=== PATIENT | female | born 2000 | race Caucasian/White ===

== ENCOUNTER 2020-12-14 05:49 | Inpatient (IN) ==
[2020-12-14] MEDS ORDERED: OXYTOCIN/0.9 % SODIUM CHLORIDE 30 UNITS/500 ML BAG IV ONE ×2 (06:17→18:57)
[2020-12-14] MEDS ORDERED: ONDANSETRON 4 MG TAB.RAPDIS PO PRN (06:17)
[2020-12-14] MEDS ORDERED: RINGER'S SOLUTION,LACTATED 1,000 ML IV ONE (06:17)
[2020-12-14] MEDS: DEXTROSE 5%-LACTATED RINGERS 1,000 ML IV PRN ×2 (10:28→14:07)
--- NOTE | 2020-12-14 14:08 | ANES ---
Anesthesia Pre Procedure Eval Vitals/Labs: Last Vital Signs Temp 36.9 C 12/14/20 06:30 Pulse 97 12/14/20 06:30 Resp 20 12/14/20 06:30 BP 121/65 12/14/20 06:30 Pulse Ox 97 12/14/20 06:30 HOME MEDICATIONS calcium carbonate 200 mg calcium (500 mg) chewable tablet 200 mg PO DAILY PRN 05/10/20 [Last Taken Unknown] acetaminophen 325 mg capsule 650 mg PO Q6H PRN 07/19/20 [Last Taken Unknown] cetirizine 10 mg capsule 10 mg PO DAILY PRN 10/04/20 [Last Taken Unknown] diphenhydramine HCl 25 mg capsule 25 mg PO HS 10/04/20 [Last Taken Unknown] ferrous sulfate 325 mg (65 mg iron) tablet,delayed release 325 mg PO DAILY #30 tab 10/05/20 [Last Taken Unknown] Vits96/Iron Fum/Folic [ S] 1 tab PO DAILY 12/14/20 [Last Taken Unknown] Allergies/Adverse Reactions: Allergies Allergy/AdvReac Type Severity Reaction Status Date / Time cat dander Allergy Itching Verified 12/14/20 06:18 cephalexin Allergy rash, hives Verified 12/14/20 06:18 - Planned Procedure Planned Procedure: elective induction 39 weeks Medication List Reviewed:: Yes Allergies Verified: Yes Medical History (Last Reviewed 12/14/20 @ 14:07 by Mg Levin CRNA) Anemia (Acute) Onset Date: 09/2020 w/ COVID-19 (Resolved) Onset Date: 05/2020 Tobacco abuse (Resolved) Bacterial vaginitis (Acute) Ovarian cyst (Acute) Simple 2.91 cm Anxiety Depression tx'd prozac stopped with +UPT Deviated septum Lymphadenitis Otitis media Pharyngitis Tonsillar hypertrophy Viral tonsillitis Surgical History (Last Reviewed 12/14/20 @ 14:07 by Mg Levin CRNA) Hx of tonsillectomy age 15 Family History (Last Reviewed 12/14/20 @ 14:07 by Mg Levin CRNA) Mother Diabetes type 2 Grandfather Diabetes Heart disease Father Sleep apnea - Family Anesthesia History Family History:: no untoward family reactions to anesthesia, no familial bleeding tendencies, no family history of clotting disorders, no family history of premature - Airway/Neck/Teeth Within Normal Limits:: Yes Teeth Condition: intact Neck Exam: full range of motion Mallampatti Score: 2 Thyromental (T-M) distance: > 6 cm Mandibulo Hyoid distance: > 3 cm - Respiratory Respiratory Physical: lungs clear Sleep Apnea currently treated: No Sleep Apnea by current assessment: No - Cardiovascular Tolerate Activity: Fair Heart Sounds: S1 & S2, Regular - Gastrointestinal NPO since: am - Anesthesia Assessment and Plan ASA Class: PS, II, E Anesthesia Type Plan: Epidural - CSE for labor analgesia
[2020-12-14] MEDS ORDERED: NALOXONE HCL 1 MG/1 ML SYRG IV PRN (14:13)
[2020-12-14] MEDS ORDERED: BUPIVACAINE HCL/0.9 % NACL/PF 250 ML EP PRN (14:13)
[2020-12-14] MEDS ORDERED: ONDANSETRON HCL/PF 2 MG/ML VIAL IV PRN (14:13)
[2020-12-14] MEDS ORDERED: fentaNYL CITRATE/PF 50 MCG/ML AMPUL IT SCH (14:15)
--- NOTE | 2020-12-14 14:33 | ANES ---
Post Anesthesia Discharge - Transfer of Care Transfer of Care handoff given to nurse: Yes - Discharge from PACU Discharge from PACU when meets criteria: Yes - Comfortable post CSE
--- NOTE | 2020-12-14 14:35 | ANES ---
Anesthesia Procedure Note Procedure Note: ANESTHESIA PROCEDURE NOTE Date of Procedure: 12/14/2020 Time of procedure: 1415. Performed by: JEROD [place] CRNA, MSN Technical Operations Vice President: Sarah Zimmerman RN. Preprocedure diagnosis: Active labor, labor pain. Post procedure diagnosis: Same. Procedure:Epidural for labor analgesia L3-4. Indications: Labor pain. Findings: See below. Details of the procedure: The patient was placed on the side of the bed in sitting position and prepped with DuraPrep then draped in a sterile fashion. Lidocaine 1% was infiltrated to the skin and subcutaneous tissues at the level of the L3-4 interspace. An 18-gauge Touhy needle was used to approach the epidural space with loss of resistance technique. Once loss of resistance was achieved a 27-gauge spinal needle was passed through the epidural needle and CSF was contacted. After CSF returned, 20 mcg of fentanyl was injected in the spinal needle was removed the epidural catheter was then threaded approximately 4 cm in the epidural needle was removed. The catheter was taped in place and after careful aspiration 3 mL of 1.5% lidocaine with 1-200,000 epinephrine was injected without change in maternal heart rate or sensorium. . EBL: Minimal. Fluids: N/A. Specimen: N/A. Post procedure condition: The patient tolerated the procedure well with good relief. No complications were noted. Thank you for this consultation. Mg Levin CRNA, ARNP, MSN
--- NOTE | 2020-12-14 14:53 | ANES ---
Post Anesthesia Assessment - Vital Signs Vitals: Last Vital Signs Temp 36.9 C 12/14/20 06:30 Pulse 97 12/14/20 06:30 Resp 20 12/14/20 06:30 BP 121/65 12/14/20 06:30 Pulse Ox 97 12/14/20 06:30 Airway Patency: Normal - Mental Status Level Of Consciousness: Awake, Alert, Appropriate - Pain Level Pain Score: 0 - N/V Assessment Nausea/Vomiting Presence: None Dehydration:: No
--- NOTE | 2020-12-14 17:03 | HP ---
Chief Complaint - Chief Complaint Date of Service: 12/14/20 Time of Service: 07:25 Chief Complaint: elective induction of labor History of Present Illness: 20 yo at 39w4d admitted for elective induction of labor. This complicated by anemia, UTI, COVID-19 (05/30/21), and smoker. Rh positive Rubella immune GBS negative Medical History (Last Reviewed 12/14/20 @ 16:56 by Roberto Castaneda DO) Anemia (Acute) Onset Date: 09/2020 w/ COVID-19 (Resolved) Onset Date: 05/2020 Tobacco abuse (Resolved) Bacterial vaginitis (Acute) Ovarian cyst (Acute) Simple 2.91 cm Anxiety Depression tx'd prozac stopped with +UPT Deviated septum Lymphadenitis Otitis media Pharyngitis Tonsillar hypertrophy Viral tonsillitis Surgical History: Surgical History (Last Reviewed 12/14/20 @ 16:56 by Roberto Castaneda DO) Hx of tonsillectomy age 15 Family History: Family History (Last Reviewed 12/14/20 @ 16:56 by Roberto Castaneda DO) Mother Diabetes type 2 Grandfather Diabetes Heart disease Father Sleep apnea Social History: (Last Reviewed 12/14/20 @ 16:56 by Roberto Castaneda DO) Social History: Marital status: Single household members: significant other current occupational status: employed Highest level of school completed/degree received: high school graduate Service: No Tobacco: Smoking Status: Current every day smoker tobacco type: cigarettes Smoking cigarettes per day: 3 Alcohol: alcohol intake: current alcohol intake frequency: a few times a week details: none with Substance Use: substance use type: does not use Dietary Habits: caffeine: Yes caffeine comment: 2/day Type: tea Exercise: Physical activity type: none Review Of Systems (GEN) - Review of Systems Generalized/Overall Review: Present: No Symptoms Reported EENTM: Present: No Symptoms Reported Respiratory: Present: No Symptoms Reported Cardiac: Present: No Symptoms Reported Abdominal: Present: Other - mild contractions Genitourinary: Present: Frequency Musculoskeletal: Present: No Symptoms Reported Neurological: Present: No Symptoms Reported Skin: Present: No Symptoms Reported Endocrine: Present: No Symptoms Reported Immunizations: IMMUNIZATION HX Immunizations Up to Date Yes History of Influenza Vaccine Yes Hx Pneumococcal Vaccination No Allergies/Adverse Reactions: Allergies Allergy/AdvReac Type Severity Reaction Status Date / Time cat dander Allergy Itching Verified 12/14/20 06:18 cephalexin Allergy rash, hives Verified 12/14/20 06:18 Home Medications: HOME MEDICATIONS calcium carbonate 200 mg calcium (500 mg) chewable tablet 200 mg PO DAILY PRN 05/10/20 [Last Taken Unknown] acetaminophen 325 mg capsule 650 mg PO Q6H PRN 07/19/20 [Last Taken Unknown] cetirizine 10 mg capsule 10 mg PO DAILY PRN 10/04/20 [Last Taken Unknown] diphenhydramine HCl 25 mg capsule 25 mg PO HS 10/04/20 [Last Taken Unknown] ferrous sulfate 325 mg (65 mg iron) tablet,delayed release 325 mg PO DAILY #30 tab 10/05/20 [Last Taken Unknown] Vits96/Iron Fum/Folic [ S] 1 tab PO DAILY 12/14/20 [Last Taken Unknown] Exam - Exam Vital Signs: Vital Signs - Last Taken Temp 36.9 C 12/14/20 06:30 Pulse 97 12/14/20 06:30 Resp 20 12/14/20 06:30 BP 121/65 12/14/20 06:30 Pulse Ox 97 12/14/20 06:30 Constitutional: Present: Alert, Oriented x3, Cooperative, No distress ENT Exam: Present: hearing grossly normal Neck: Present: non-tender Breasts: Present: Exam deferred Respiratory: Present: lungs clear, no respiratory distress Cardiovascular/Chest: Present: normal peripheral pulses, regular rate, rhythm Abdomen: Present: soft, nontender, no rebound tenderness, other - gravid /Rectal: Present: Other - cervix 2/75/-2 Extremity: Present: no calf tenderness, lower extremity edema - 1+ Skin Exam: Present: normal color, warm/dry, no cyanosis Lymphatic: Present: no adenopathy Neurologic: Present: alert, normal mood/affect, oriented x 3 Appearance: Present: appropriate appearance, appropriate insight Eye contact: Present: cooperative, good eye contact Assessment/Plan - Assessment/Plan (1) Encounter for elective induction of labor Assessment: Admit for pitocin induction of labor. Epidural PRN. Problem: Acute (2) Anemia Problem: Acute Qualifiers: Anemia type: iron deficiency Iron deficiency anemia type: inadequate dietary iron intake Qualified Code(s): D50.8 - Other iron deficiency anemias (3) Tobacco abuse Problem: Resolved
--- NOTE | 2020-12-14 18:10 | PN ---
Progess Note - Interim Date: 12/14/20 Time: 13:00 Narrative: 12/14/20 18:52 Patient rating contractions as mild to moderate Vital signs stable. Pitocin at 6 mu/min. FHT: 150 baseline, reassuring contractions q 2-3 min Cervix: 2/80/-2, AROM-clear Impression: Intrauterine at 39 weeks 4 days with elective induction of labor. Plan: Prepare for epidural placement.
--- NOTE | 2020-12-14 18:54 | OR ---
Operative Report - Dictated Report Narrative: Spontaneous vaginal delivery of viable female at 1821 on 12/14/2020 with Apgars 9 and 9, weighing 3022 g in KELBY position with nuchal cord x1 and true knot in cord. Cord clamping delayed approximately 90 seconds Placenta delivered complete, intact, with three vessel cord Estimated blood loss: 200 mL Anesthesia: Epidural Lacerations: 2 cm second-degree vaginal laceration repaired with 3-0 Vicryl History for MU History for Definition: * The number of deliveries resulting in a live the patient experienced prior to current hospitalization * The previous delivery of live twins or any live multiple gestation is considered one live event. *If primagravida or nulliparous is documented select zero for the number of previous live births. Live Events: Live Events: 0
[2020-12-14] MEDS ORDERED: CALCIUM CARBONATE 500 MG TAB.CHEW PO PRN (18:55)
[2020-12-14] MEDS ORDERED: oxyCODONE HCL/ACETAMINOPHEN 1 TAB TABLET PO PRN (18:57)
[2020-12-14] MEDS ORDERED: HYDROCORTISONE 30 APPL TUBE TP PRN (18:57)
[2020-12-14] MEDS ORDERED: BISACODYL 10 MG SUPP.RECT RC PRN (18:57)
[2020-12-14] MEDS ORDERED: BENZOCAINE/MENTHOL 81 SPRAY CAN TP PRN (18:57)
[2020-12-14] MEDS ORDERED: ACETAMINOPHEN 325 MG TABLET PO PRN (18:57)
[2020-12-14] MEDS ORDERED: GLYCERIN/WITCH HAZEL LEAF 40 APPL BOX TP PRN (18:57)
[2020-12-14] MEDS ORDERED: SENNOSIDES 8.6 MG TABLET PO PRN (18:57)
[2020-12-14] MEDS ORDERED: LORATADINE 10 MG TABLET PO PRN (19:16)
[2020-12-14] MEDS: IBUPROFEN 800 MG TABLET PO PRN (20:52)
[2020-12-14] MEDS: DOCUSATE SODIUM 100 MG CAPSULE PO SCH (20:52)
[2020-12-15] MEDS: HYDROcodone/ACETAMINOPHEN 1 EACH TABLET PO PRN ×5 (00:04→21:47)
[2020-12-15] MEDS: IBUPROFEN 800 MG TABLET PO PRN ×4 (04:49→23:34)
[2020-12-15] MEDS: PRENATAL VITS96/IRON FUM/FOLIC 1 TAB TABLET PO SCH (09:08)
[2020-12-15] MEDS: FERROUS SULFATE 325 MG TABLET PO SCH (09:08)
[2020-12-15] MEDS: DOCUSATE SODIUM 100 MG CAPSULE PO SCH ×2 (09:08→20:56)
--- NOTE | 2020-12-15 09:09 | PN ---
Subjective - Date and Time Seen Date: 12/15/20 Time: 08:30 Objective - Vitals Vitals: Last Vital Signs Temp 36.6 C 12/15/20 08:28 Pulse 86 12/15/20 08:28 Resp 16 12/15/20 08:28 BP 108/68 12/15/20 08:28 Pulse Ox 98 12/15/20 08:28 Patient denies complaints. Lochia wnl abdomen - soft, nontender Uterus -firm, at umbilicus - 1 No calf tenderness Impression: day #1 - s/p spontaneous vaginal delivery. Plan: Continue routine care Cauti Physician Documentation - Urinary Catheter Management Urethral (Stein) Date of Insertion: 12/14/20 Time of Insertion: 14:30 Date of Removal: 12/14/20 Time of Removal: 18:00 Assessment/Plan - Problems/Diagnosis (1) Normal vaginal delivery of first Problem: Acute (2) Encounter for elective induction of labor Problem: Acute (3) Anemia Problem: Acute Qualifiers: Anemia type: iron deficiency Iron deficiency anemia type: inadequate dietary iron intake Qualified Code(s): D50.8 - Other iron deficiency anemias (4) Tobacco abuse Problem: Resolved
[2020-12-16] MEDS: IBUPROFEN 800 MG TABLET PO PRN ×2 (05:48→12:42)
[2020-12-16] MEDS: HYDROcodone/ACETAMINOPHEN 1 EACH TABLET PO PRN ×3 (05:48→14:42)
[2020-12-16] MEDS: PRENATAL VITS96/IRON FUM/FOLIC 1 TAB TABLET PO SCH (09:43)
[2020-12-16] MEDS: DOCUSATE SODIUM 100 MG CAPSULE PO SCH (09:43)
[2020-12-16] MEDS: FERROUS SULFATE 325 MG TABLET PO SCH (09:44)
--- NOTE | 2020-12-16 12:56 | PN ---
Subjective - Date and Time Seen Date: 12/16/20 Time: 12:56 Objective - Vitals Vitals: Last Vital Signs Temp 36.7 C 12/16/20 07:30 Pulse 81 12/16/20 07:30 Resp 16 12/16/20 07:30 BP 115/69 12/16/20 07:30 Pulse Ox 99 12/16/20 07:30 Patient denies complaints. Bottlefeeding. Lochia wnl abdomen - soft, nontender Uterus -firm, at umbilicus - 2 No calf tenderness Impression: day #2 - s/p spontaneous vaginal delivery. Plan: Routine discharge instructions Cauti Physician Documentation - Urinary Catheter Management Urethral (Stein) Date of Insertion: 12/14/20 Time of Insertion: 14:30 Date of Removal: 12/14/20 Time of Removal: 18:00 Assessment/Plan - Problems/Diagnosis (1) Normal vaginal delivery of first Problem: Acute (2) Encounter for elective induction of labor Problem: Acute (3) Anemia Problem: Acute Qualifiers: Anemia type: iron deficiency Iron deficiency anemia type: inadequate dietary iron intake Qualified Code(s): D50.8 - Other iron deficiency anemias (4) Tobacco abuse Problem: Resolved
--- NOTE | 2020-12-16 13:00 | DS ---
OB Discharge Summary (1) Normal vaginal delivery of first Status: Acute (2) Encounter for elective induction of labor Status: Acute (3) Anemia Status: Acute Qualifiers: Anemia type: iron deficiency Iron deficiency anemia type: inadequate dietary iron intake Qualified Code(s): D50.8 - Other iron deficiency anemias (4) Tobacco abuse Status: Resolved Delivery Date: 12/14/20 Delivery Time: 18:21 :: 1 Para:: 1 Gestational weeks:: 39 Gestational days:: 4 Intrapartum Procedures: Spontaneous Vaginal Delivery, Delivered Procedures: Other - Repair second-degree vaginal laceration. /OP Complications: No Complications Discharge Diagnosis: Term -Delivered, Rubella Immune - Discharge Information Date of Discharge: 12/16/20 Hospital Course: 20-year-old 1 para 0 admitted at 39 4/7 weeks for elective induction of labor. Delivery and course uncomplicated. Patient was discharged with routine discharge instructions on day 2. Discharge Location: Home Disposition: Home self-care Condition: Good Activity on Discharge:: Activity as tolerated, Pelvic Rest Discharge Diet: General/regular food Additional Patient Instructions (free text): Calderon's follow up appt is Saturday12/19/20 @ 10:15AM with Dr Chiu. Please arrive at 10:00 for paperwork. Her Blood Type is A+. Her Weight Today is 6 pounds 8.2 ounces. Her Bilirubin is 7.1 at 34 hours of age. Feed her on demand or at least every 3-[address] her on her back in her own crib or bassinet for sleep. No pillows, blankets, stuffed animals, or bumper pads in her sleep space. Annamaria, Your follow up appt is on 01/12/21 @ 09:15AM with Dr Castaneda. Please call with any questions/concerns. [facility] [phone], [facility] [phone], [facility] [phone]. Complete Home Medications List: Complete Home Medication List: calcium carbonate 200 mg calcium (500 mg) chewable tablet 200 mg PO DAILY PRN 05/10/20 acetaminophen 325 mg capsule 650 mg PO Q6H PRN 07/19/20 cetirizine 10 mg capsule 10 mg PO DAILY PRN 10/04/20 diphenhydramine HCl 25 mg capsule 25 mg PO HS 10/04/20 ferrous sulfate 325 mg (65 mg iron) tablet,delayed release 325 mg PO DAILY #30 tab 10/05/20 Vits96/Iron Fum/Folic [ S] 1 tab PO DAILY 12/14/20 - Plan Discharge to:: Home Follow up in office in:: 3-4 weeks - Information Weight (Grams): 3,022 Infant Sex: Female Score 1 min: 9 Score 5 min: 9 Complications: Multiple Late Decels, Multiple Variable Decels Other Complications: NC x 1, true knot in cord
[2020-12-16 16:00] VITALS: BP 131/88
== END 2020-12-16 15:45 | disposition home or self-care (01) | DRG 806 ==
LOC: OB 05:49
PROVIDERS: ADMIT Obstetrics & Gynecology; ATTEND Obstetrics & Gynecology